=== PATIENT | female | born 1985 | race Caucasian/White ===

== ENCOUNTER 2021-07-01 14:45 | Emergency (ER) | payer OTHER ==
[~2021-07-01] VITALS: Ht 162.6 cm; Wt 49.9 kg
[~2021-07-01 14:45] MED LIST: ACET-2619; METO-460 PO; POTA10TE30 PO; PREN-234
[2021-07-01 15:08] VITALS: BP 113/64
--- NOTE | 2021-07-01 15:14 | NUR ---
PATIENT AMBULATED TO BED 11.
--- NOTE | 2021-07-01 15:33 | NUR ---
[facility] BEDSIDE EVALUATING PT
[2021-07-01] MEDS ORDERED: IBUPROFEN 600 MG TAB PO ONE (15:40)
--- NOTE | 2021-07-01 15:45 | NUR ---
35 Y FEMALE C/O RIGHT THIGH PAIN & BRUISE S/P FALL AT [facility] X 1 WEEK. PT DENIES ANY HEAD TRAUMA OR LOC. PT STATED SHE FELL BACK AND ON HER R HIP AREA. LARGE BRUISE NOTED ON HER R THIGH. PT IS ABLE TO AMBULATE AND MOVE HER LEG. PEDIAL PULSE 2+ AND STRONG IN R FOOT. PMH:ASTHMA NKA
--- NOTE | 2021-07-01 16:16 | NUR ---
XRAY BEDSIDE WITH PT
--- NOTE | 2021-07-01 16:50 | NUR ---
[facility] BEDSIDE SPEAKING WITH PT
--- NOTE | 2021-07-01 17:41 | NUR ---
PT TAKEN TO CT VIA W/C
--- NOTE | 2021-07-01 18:00 | NUR ---
PT RETURNED TO BED [address] VIA W/C
[2021-07-01] MEDS ORDERED: IBUP-2213 PO (18:28)
[2021-07-01 18:37] VITALS: BP 109/53
== END 2021-07-01 18:37 | disposition home or self-care (01) ==
LOC: MED 14:45
DX: S80.11XA Contusion of right lower leg, initial encounter (principal); W19.XXXA Unspecified fall, initial encounter; Y93.89 Activity, other specified; Y92.89 Other specified places as the place of occurrence of the external cause; Y99.8 Other external cause status
CPT/HCPCS: 73700; 81025; 99284; Q0092